=== PATIENT | female | born 1965 | race Caucasian/White ===

== ENCOUNTER → 2020-05-03 | Outpatient (CLI) | payer BC | LOC: LAB 08:43 | PROVIDERS: ATTEND Nurse Anesthetist, Certified Registered | DX: Z11.59 Encounter for screening for other viral diseases (principal) | CPT/HCPCS: U0003-CS ==

== ENCOUNTER → 2020-05-06 | Day surgery (SDC) | payer BC ==
[~2020-05-06] MED LIST: ACETAMINOPHEN 325 MG TABLET PO PRN; ALBUTEROL SULFATE 2.5 MG/3 ML NEBU. NEB PRN; ATROPINE 0.5 MG/5 ML DISP.SYRIN. IV PRN; IV RINGERS SOLUTION,LACTATED 1,000 ML IV SCH; MIDAZOLAM HCL PF 2 MG/2 ML VIAL. IV PRN; ONDANSETRON PF 4 MG/2 ML VIAL. IV PRN; PROPOFOL 10,000 MCG/ML (20ML) VIAL IV ONE; diphenhydrAMINE 50 MG/ML VIAL IV PRN
[2020-05-06 10:33] VITALS: BP 111/78
--- NOTE | 2020-05-07 18:06 | PATHOLOGY ---
[facility] Accession Number: [id number] . 01 Material submitted: . hepatic flexure - HEPATIC FLEXURE POLYP . 02 Diagnosis: Colon biopsies, hepatic flexure polyp: - Tubular adenoma. LB 05/07/2020 1537 Local . 02 Comment: There is no high grade dysplasia or evidence of malignancy. (JPM/db; 05/07/2020) . 02 Electronically signed: . Erasmo Reyes MD, Pathologist NPI- [id number] . 01 Gross description: . The specimen is received in formalin, labeled "[place], [place], hepatic flexure polyp" and consists of a polypoid segment of pink-chisholm tissue measuring 0.5 x 0.5 x 0.3 cm which is entirely submitted in A1. ([facility]; 05/06/2020) JFQ/JFQ 05/06/2020 1705 Local . 02 Pathologist provided ICD-10: D12.3 . 02 CPT . 523921 Specimen Comment: A courtesy copy of this report has been sent to [phone] Specimen Comment: [phone] Specimen Comment: Report sent to / DR LAW Specimen Comment: A duplicate report has been generated due to demographic updates. Performed at: 01 [facility] [address], [place], [place] [id number] MD Willi Harris MD Phone: [phone] Performed at: 02 [facility] [address] [place], [place] [id number] MD Erasmo Reyes MD Phone: [phone]
== END | disposition home or self-care (01) ==
LOC: SURG 07:44
PROVIDERS: ATTEND Internal Medicine Gastroenterology
DX: Z12.11 Encounter for screening for malignant neoplasm of colon (principal); D12.3 Benign neoplasm of transverse colon; K64.4 Residual hemorrhoidal skin tags; K63.89 Other specified diseases of intestine; Z90.710 Acquired absence of both cervix and uterus; Z98.890 Other specified postprocedural states
CPT/HCPCS: 45385; 88305; J2704; J7120